=== PATIENT | female | born 1960 | race Caucasian/White ===

== ENCOUNTER 2024-11-09 09:01 | Outpatient (CLI) | payer MEDICARE ==
[2024-11-09] MEDS ORDERED: E-Z-HD 98% W/W 340GM BOT (x-ray ONLY) ONE (09:42)
[2024-11-09] MEDS ORDERED: Barium Sulfate 96% 176 GM BOT (xray ONLY) ONE (09:42)
== END 2024-11-09 09:02 | disposition home or self-care (01) ==
LOC: RAD 09:01
PROVIDERS: ATTEND Physician Assistant Medical
DX: R11.10 Vomiting, unspecified (principal); R19.2 Visible peristalsis; Z98.84 Bariatric surgery status
CPT/HCPCS: 74246